=== PATIENT | female | born 1945 | race Caucasian/White ===

== ENCOUNTER 2017-07-31 16:36 | Emergency (ER) | payer MEDICARE ==
[2017-07-31 17:45] LABS: #Basophils 0.1 thou/uL (0.0-0.2); #Eosinphils 0.3 thou/uL (0.0-0.7); #Lymphocytes 3.2 thou/uL (1.20-3.40); #Monocytes 0.7 thou/uL (0.11-0.59); #Neutrophils 7.2 thou/uL (1.40-6.50); %Basophils 0.7 % (0.0-1.0); %Eosinophils 2.6 % (0.0-10.0); %Monocytes 5.7 % (0.0-10.0); Hematocrit 43.8 % (36.0-47.0); Mean Platelet Volume 7.9 fL (7.4-10.4); Red Blood Cell (RBC) Count 4.85 mill/uL (4.20-5.40); White Blood Cell (WBC) Count 11.4 thou/uL (4.8-10.8)
[2017-07-31 18:08] LABS: ALT (SGPT) 51 U/L (8-55); AST (SGOT) 48 U/L (5-34); Alkaline Phosphatase 95 U/L (40-150); Anion Gap 14 mmol/L (10-20); BUN (Urea Nitrogen) 19 mg/dL (9.8-20.1); Bilirubin, Total 0.3 mg/dL (0.2-1.2); CK (CPK) 144 U/L (29-168); Calc. Creatinine Clearance 0 mL/min (70-130); Calcium 10.3 mg/dL (7.8-10.44); Carbon Dioxide 27 mmol/L (23-31); Chloride 101 mmol/L (98-107); Estimated GFR-MDRD 34; Globulin 3.7 g/dL (2.4-3.5); Protein, Total 7.9 g/dL (6.0-8.3)
[2017-07-31 18:21] LABS: Troponin I Less than 0.010 ng/mL (< 0.028)
--- NOTE | 2017-07-31 18:41 | RAD ---
PORTABLE FRONTAL CHEST RADIOGRAPH 07/31/17 COMPARISON: 05/17/16. HISTORY: Weakness. FINDINGS: The patient is rotated to the right. No pneumothorax, lobar consolidation, or alveolar edema. IMPRESSION: No acute findings. POS: [facility]
[2017-07-31 19:25] LABS: Bilirubin Negative (Negative); Blood, Urine Negative (Negative); Glucose, Urine (Dipstick) Negative (Negative); Ketone, Urine Negative (Negative); Nitrite Negative (Negative); Protein, Urine (Dipstick) Negative (Neg-Trace); Urobilinogen 0.2 mg/dL (0.2-1.0)
[2017-07-31 19:26] LABS: Bacteria/HPF 2+ HPF (None Seen); Hyaline Casts/LPF 0-3 HYALINE CAST LPF (0-3 Hyaline); RBC/HPF 0-3 HPF (0-3); Squamous Epithelial 0-3 HPF (0-3); WBC/HPF 0-3 HPF (0-3)
--- NOTE | 2017-09-19 15:24 | EKG ---
Test Reason : PALPITATIONS Blood Pressure : / mmHG Vent. Rate : 080 BPM Atrial Rate : 080 BPM P-R Int : 166 ms QRS Dur : 084 ms QT Int : 386 ms P-R-T Axes : 044 030 065 degrees QTc Int : 445 ms Normal sinus rhythm Normal ECG Confirmed by MAMIE ANGUIANO M.D. ([id number]), make up editor INDIRA MG ([id number]) on 09/19/2017 3:24:18 PM Referred By: Confirmed By:MAMIE ANGUIANO M.D.
== END 2017-07-31 19:59 | disposition home or self-care (01) ==
LOC: ERS 16:36
DX: R53.1 Weakness (principal); E11.9 Type 2 diabetes mellitus without complications; E78.5 Hyperlipidemia, unspecified; I10 Essential (primary) hypertension; F31.9 Bipolar disorder, unspecified; Z87.891 Personal history of nicotine dependence
CPT/HCPCS: 36415; 71010; 80053; 81003; 81015; 82550; 82553; 83880; 84443; 84484; 85025; 93005

== ENCOUNTER 2018-03-30 13:56 | Outpatient (CLI) | payer MEDICARE, OTHER | END 2018-03-30 13:57 | disposition home or self-care (01) | LOC: BICMAMMO 13:56 | PROVIDERS: ATTEND Family Medicine | DX: Z12.31 Encounter for screening mammogram for malignant neoplasm of breast (principal) | CPT/HCPCS: 77063; 77067 ==

== ENCOUNTER 2018-04-05 15:14 | Outpatient (CLI) | payer MEDICARE, OTHER | END 2018-04-05 15:15 | disposition home or self-care (01) | LOC: BICULT 15:14 | PROVIDERS: ATTEND Internal Medicine Nephrology | DX: I12.9 Hypertensive chronic kidney disease with stage 1 through stage 4 chronic kidney disease, or unspecified chronic kidney disease (principal); N18.3 Chronic kidney disease, stage 3 (moderate); N28.1 Cyst of kidney, acquired | CPT/HCPCS: 76770 ==

== ENCOUNTER 2019-02-17 12:49 | Outpatient (CLI) | payer MEDICARE ==
--- NOTE | 2019-02-17 13:47 | RAD ---
TWO VIEWS CHEST: 02/17/19 PROVIDED CLINICAL HISTORY: Dyspnea. FINDINGS: Comparison 06/02/17. Cardiac and mediastinal silhouette is within normal limits. Lungs appear clear. No pleural fluid or p neumothorax apparent. Vascular calcification involves the aortic arch. IMPRESSION: No evidence for an acute cardiopulmonary process. POS: [facility]
== END 2019-02-17 12:50 | disposition home or self-care (01) ==
LOC: RAD 12:49 → BICRAD 12:50
PROVIDERS: ATTEND Internal Medicine Critical Care Medicine
DX: R06.00 Dyspnea, unspecified (principal)
CPT/HCPCS: 71046

== ENCOUNTER 2019-04-26 10:45 | Outpatient (CLI) | payer MEDICARE ==
--- NOTE | 2019-04-26 11:01 | RAD ---
Exam: Chest 2 views HISTORY:Dyspnea Comparison: 02/17/2019 FINDINGS: Lungs: No masses or consolidation. There is vascular calcification. Cardiac silhouette:Stable Pulmonary vessels: Normal Pleural Spaces: Clear Pneumothorax: None Osseous abnormalities: None of acuity. IMPRESSION: No focal consolidation.
== END 2019-04-26 10:46 | disposition home or self-care (01) ==
LOC: BICRAD 10:45
PROVIDERS: ATTEND Internal Medicine Critical Care Medicine
DX: R06.00 Dyspnea, unspecified (principal)
CPT/HCPCS: 71046

== ENCOUNTER 2019-08-08 10:07 | Outpatient (CLI) | payer MEDICARE ==
--- NOTE | 2019-08-08 12:09 | RAD ---
PA AND LATERAL CHEST: Date: 08/08/19 HISTORY: Dyspnea. COMPARISON: 04/26/19. FINDINGS: Heart size within normal limits with atherosclerotic changes of the aorta. The lungs are clear of any infiltrative process. IMPRESSION: No active intrathoracic disease. Stable chest. POS: [facility]
== END 2019-08-08 10:08 | disposition home or self-care (01) ==
LOC: RAD 10:07
PROVIDERS: ATTEND Internal Medicine Critical Care Medicine
DX: R06.00 Dyspnea, unspecified (principal)
CPT/HCPCS: 71046

== ENCOUNTER 2019-09-21 23:10 | Emergency (ER) | payer MEDICARE ==
--- NOTE | 2019-09-21 23:58 | RAD ---
Exam: XR Humerus Rt 2 View STANDARD HISTORY: Injury after fall COMPARISON: None FINDINGS: There is a nondisplaced fracture involving the right humeral head neck junction. No additional fractu re is seen, and there is no dislocation seen. No other osseous abnormality. IMPRESSION: Nondisplaced fracture involving the proximal right humerus at the level of the humeral head neck junc tion.
--- NOTE | 2019-09-22 | RAD ---
Exam: XR Shoulder Rt 3 View STANDARD HISTORY: Injury after a fall. Injury to right shoulder COMPARISON: None FINDINGS: As noted on views of the right humerus, there is a nondisplaced fracture involving the head/neck junc tion of the proximal right humerus. No dislocation is seen. Vascular calcifications are seen in the aortic arch. No other findings. IMPRESSION: Nondisplaced fracture involving the right humeral head/neck junction.
[2019-09-22] MEDS ORDERED: HYDROcodone/Acetaminophen 5/325 mg Tablet ONE (00:05)
== END 2019-09-22 01:14 | disposition home or self-care (01) ==
LOC: ERS 23:10
DX: S42.214A Unspecified nondisplaced fracture of surgical neck of right humerus, initial encounter for closed fracture (principal); F17.210 Nicotine dependence, cigarettes, uncomplicated; W18.09XA Striking against other object with subsequent fall, initial encounter

== ENCOUNTER 2022-01-21 09:52 | Outpatient (CLI) | payer MEDICARE, OTHER | END 2022-01-21 09:53 | disposition home or self-care (01) | LOC: RAD 09:52 | PROVIDERS: ATTEND Internal Medicine Critical Care Medicine | DX: R06.00 Dyspnea, unspecified (principal) | CPT/HCPCS: 71046 ==

== ENCOUNTER 2023-05-22 09:54 | Outpatient (CLI) | payer MEDICARE | END 2023-05-22 09:55 | disposition home or self-care (01) | LOC: RAD 09:54 | PROVIDERS: ATTEND Internal Medicine Critical Care Medicine | DX: R06.00 Dyspnea, unspecified (principal) | CPT/HCPCS: 71046 ==

== ENCOUNTER 2023-06-16 10:26 | Outpatient (CLI) | payer MEDICARE | END 2023-06-16 10:27 | disposition home or self-care (01) | LOC: RAD 10:26 | PROVIDERS: ATTEND Internal Medicine Critical Care Medicine | DX: R06.00 Dyspnea, unspecified (principal) | CPT/HCPCS: 71046 ==